=== PATIENT | female | born 1965 | race Caucasian/White ===

== ENCOUNTER 2021-10-16 08:08 | Emergency (ER) | payer OTHER ==
[~2021-10-16 08:08] MED LIST: BACTRIM DS TAB1 EACH PO; BUSPIRONE HCL15 MG PO; CEFDINIR300 MG PO; DEPAKOTE 250MG250 MG PO; HYDROCODONE/APA1 TAB PO; HYDROXYZINE HCL25 MG PO; KEFLEX500 MG PO; LOW DOSE ASPIRI81 MG PO; NEFAZODONE HCL200 MG PO; NEURONTIN300 MG PO; NORCO 5-325 TA1 EACH PO; PLAVIX75 MG PO; ROBAXIN500 MG PO; TENORMIN50 MG PO; XARELTO15 MG PO
[2021-10-16 09:33] LABS: BASOPHIL 0.8 % (0-2); EOSINOPHIL 1.2 % (0-5); HCT 47.3 % (37.0-47.0); HGB 15.5 g/dl (12.5-16.0); LYMPHOCYTE 36.7 % (15-48); MCHC 32.8 g/dL (32.0-36.0); MCV 88.4 fL (78.0-100.0); MONOCYTE 9.5 % (0-12); MPV 10.6 fL (6.0-9.5); NEUTROPHIL 51.6 % (41-80); NRBC 0; PLT 225 K/uL (150-400); RBC 5.35 M/uL (4.20-5.40); RDW 13.5 % (11.5-14.0); WBC 8.9 K/uL (4.0-10.5)
[2021-10-16 09:47] LABS: INR 0.97 (0.9-1.2); PROTHROMBIN TIME 12.3 SECONDS (11.8-13.4); PTT 29.3 SECONDS (24.4-34.7)
[2021-10-16 10:10] LABS: ALBUMIN 3.6 g/dL (3.4-5.0); BILIRUBIN - TOTAL 0.3 mg/dL (0.2-1.0); BUN/CREAT RATIO (CALC) 15.8 RATIO; CREATININE 0.76 mg/dL (0.51-0.95); GLOBULIN (CALCULATION) 4.2 g/dL; MAGNESIUM 2.1 mg/dL (1.8-2.4); TOTAL PROTEIN 7.8 g/dL (6.4-8.2)
== END 2021-10-16 18:56 | disposition other institution (70) ==
LOC: FER 08:08
PROVIDERS: Emergency Medicine
DX: T82.868A Thrombosis due to vascular prosthetic devices, implants and grafts, initial encounter (principal); I50.9 Heart failure, unspecified; I25.2 Old myocardial infarction; Z28.310 Unvaccinated for COVID-19; Z20.822 Contact with and (suspected) exposure to COVID-19; Z88.5 Allergy status to narcotic agent; Y83.2 Surgical operation with anastomosis, bypass or graft as the cause of abnormal reaction of the patient, or of later complication, without mention of misadventure at the time of the procedure
CPT/HCPCS: 36415; 80053; 82550; 83605; 83735; 84145; 84484; 85025; 85379; 85610; 85730; 93005; J1644; J2270; J2405; J7030; Q9967; U0002